=== PATIENT | male | born 1970 | race Caucasian/White ===

== ENCOUNTER 2022-06-12 20:53 | Emergency (ER) | payer OTHER ==
[~2022-06-12] VITALS: Ht 167.6 cm; Wt 98.0 kg
[2022-06-12 20:56] VITALS: BP 148/106
[2022-06-12] MEDS ORDERED: albuterol 2.5 MG/3 ML nebule NEB STA (21:51)
[2022-06-12] MEDS ORDERED: triamcinolone acetonide 40mg/ml inj IM ONE (22:25)
[2022-06-12] MEDS ORDERED: CETI10TA15 PO (22:25)
[2022-06-12] MEDS ORDERED: famotidine 20mg tablet PO ONE (22:25)
[2022-06-12] MEDS ORDERED: FAMO20TA47 PO (22:25)
[2022-06-12] MEDS ORDERED: mag hydrox/Alum hydrox/simeth 30ml oral suspension PO ONE (22:25)
[2022-06-12] MEDS ORDERED: LIDOcaine Viscous 15ml cup MM ONE (22:25)
== END 2022-06-12 23:27 | disposition home or self-care (01) ==
LOC: ER 20:54
DX: T78.1XXA Other adverse food reactions, not elsewhere classified, initial encounter (principal); K21.9 Gastro-esophageal reflux disease without esophagitis; Z88.1 Allergy status to other antibiotic agents; X58.XXXA Exposure to other specified factors, initial encounter
CPT/HCPCS: 96372; 99283; J3301; 94760